=== PATIENT | female | born 1945 | race Caucasian/White ===

== ENCOUNTER 2024-04-16 14:48 | Inpatient (IN) | payer MEDICARE, OTHER ==
[~2024-04-16] VITALS: Ht 162.6 cm; Wt 62.1 kg
[2024-04-16 15:28] LABS: BASOPHILS # (AUTO) 0.1 K/uL (0.0-0.2); BASOPHILS % (AUTO) 0.8 % (0.0-2.0); EOSINOPHILS # (AUTO) 0.1 K/uL (0.0-0.7); EOSINOPHILS % (AUTO) 0.8 % (0.0-6.0); HEMATOCRIT 35 % (33-45); HEMOGLOBIN 11.5 g/dL (11.5-14.8); LYMPHOCYTES # (AUTO) 0.5 K/uL (0.8-4.8); LYMPHOCYTES % (AUTO) 4.8 % (20.0-44.0); MEAN CORPUSCULAR HEMOGLOBIN 29 PG (26.0-33.0); MEAN CORPUSCULAR HGB CONC 34 g/dl (31.0-36.0); MEAN CORPUSCULAR VOLUME 86 fL (82-100); MONOCYTES # (AUTO) 1.4 K/uL (0.1-1.30); MONOCYTES % (AUTO) 13.9 % (2.0-12.0); NEUTROPHILS % (AUTO) 79.7 % (43.0-81.0); PLATELET COUNT (AUTO) 184 K/uL (150-450); RED BLOOD CELL COUNT(AUTO) 4.01 MIL/uL (4.0-5.2); RED CELL DISTRIBUTION WIDTH 14.7 % (11.5-15.0)
[2024-04-16] MEDS: IV NS 0.9% 250 ML BAG IV ONE (15:40)
[2024-04-16 15:41] LABS: CALCIUM, SERUM 9.7 mg/dL (8.5-10.1); CARBON DIOXIDE 24 mmol/L (21-32); CHLORIDE 105 mmol/L (98-107); CREATININE 0.6 mg/dL (0.6-1.3); GLUCOSE 67 mg/dL (74-106); POTASSIUM 3.5 mmol/L (3.5-5.1); SODIUM SERUM 141 mmol/L (136-145); UREA NITROGEN, BLOOD 12 mg/dL (7-18)
[2024-04-16] MEDS ORDERED: ACETAMINOPHEN ES 500 MG TABLET ONE (15:48)
[2024-04-16] MEDS ORDERED: AMOX/CLAVULANATE 875 MG TABLET ONE (15:49)
[2024-04-16] MEDS ORDERED: AMOX/CLAVULANATE 875 MG TABLET PO ONE (16:00)
[2024-04-16] MEDS: ACETAMINOPHEN ES 500 MG TABLET PO ONE (16:05)
[2024-04-16] MEDS: AZITHROMYCIN 250 MG TABLET PO ONE (16:05)
[2024-04-16] MEDS: CEFEPIME 1 GM in IV D5W 50 ML IV ONE (16:15)
[2024-04-16] MEDS ORDERED: CYCL30DR EACHEYE (16:39)
[2024-04-16] MEDS ORDERED: HYDR25TA4 PO (16:39)
[2024-04-16] MEDS ORDERED: MOME13HF2 IH (16:39)
[2024-04-16] MEDS ORDERED: OMEG-167 PO (16:39)
[2024-04-16] MEDS ORDERED: ERYT3.5O9 EACHEYE (16:39)
[2024-04-16] MEDS ORDERED: DICL100G26 TP (16:39)
[2024-04-16] MEDS ORDERED: LIPA1CAP15 PO (16:39)
[2024-04-16] MEDS ORDERED: DEXL60CA3 PO (16:39)
[2024-04-16] MEDS ORDERED: ESCI20TA PO (16:39)
[2024-04-16] MEDS ORDERED: MAGN400T26 PO (16:39)
[2024-04-16] MEDS ORDERED: CETI10TA14 PO (16:39)
[2024-04-16] MEDS ORDERED: HYDR-4077 PO (16:39)
[2024-04-16] MEDS ORDERED: ISOS60TA72 PO (16:39)
[2024-04-16] MEDS ORDERED: DOXA8TAB79 PO (16:39)
[2024-04-16] MEDS ORDERED: AMLO2.5T2 PO (16:39)
[2024-04-16] MEDS ORDERED: ROSU20TA2 PO (16:39)
[2024-04-16] MEDS ORDERED: OLME40TA12 PO (16:39)
[2024-04-16] MEDS ORDERED: CHOL500052 PO (16:39)
[2024-04-16] MEDS ORDERED: HYDR28.316 RC (16:39)
[2024-04-16] MEDS ORDERED: APIX2.5T PO (16:39)
[2024-04-16] MEDS ORDERED: ACETAMINOPHEN 325 MG TABLET PO PRN (20:00)
[2024-04-16] MEDS ORDERED: ONDANSETRON HCL/PF 4 MG/2 ML VIAL IVP PRN (20:00)
[2024-04-16] MEDS ORDERED: Z GUARD REMEDY 4 OZ OINT TP PRN (20:00)
[2024-04-16] MEDS ORDERED: MAG HYDROX/AL HYDROX/SIMETH 30 ML UDC PO PRN (20:00)
[2024-04-16] MEDS ORDERED: MAGNESIUM HYDROXIDE 30 ML UDC PO PRN (20:00)
[2024-04-16] MEDS ORDERED: ZOLPIDEM TARTRATE 5 MG TABLET PO PRN (20:00)
[2024-04-16] MEDS ORDERED: NITROGLYCERIN 0.4 MG/TAB BOTTLE SL PRN (20:00)
[2024-04-16] MEDS ORDERED: ALBUTEROL FS 2.5 MG/3 ML VIAL.NEB NEB PRN (20:00)
[2024-04-16 20:30] VITALS: BP 143/76; TEMP 98.4; O2SAT 94
[2024-04-16] MEDS ORDERED: MAGNESIUM OXIDE 400 MG TABLET PO PRN (20:30)
[2024-04-16] MEDS ORDERED: DICLOFENAC TOPICAL 100 GM TUBE TP PRN (21:30)
[2024-04-16] MEDS: cetrizine 10 MG TABLET PO SCH (21:47)
[2024-04-17] VITALS (10 sets, daily range): BP systolic 97–168; BP diastolic 56–83; TEMP 97.7–98.8; O2SAT 91–99
[2024-04-17] MEDS ORDERED: CEFEPIME 1 GM in IV D5W 50 ML IV ONE (01:00)
[2024-04-17] MEDS ORDERED: CEFEPIME 1 GM VIAL ONE (04:16)
[2024-04-17] MEDS: CEFEPIME 1 GM in IV D5W 50 ML IV ONE (04:27)
[2024-04-17 06:56] LABS: BASOPHILS % (AUTO) 0.2 % (0.0-2.0); EOSINOPHILS # (AUTO) 0.1 K/uL (0.0-0.7); EOSINOPHILS % (AUTO) 1.1 % (0.0-6.0); HEMATOCRIT 32 % (33-45); HEMOGLOBIN 10.9 g/dL (11.5-14.8); LYMPHOCYTES # (AUTO) 0.7 K/uL (0.8-4.8); LYMPHOCYTES % (AUTO) 6.2 % (20.0-44.0); MEAN CORPUSCULAR HEMOGLOBIN 29 PG (26.0-33.0); MEAN CORPUSCULAR HGB CONC 34 g/dl (31.0-36.0); MEAN CORPUSCULAR VOLUME 85 fL (82-100); MONOCYTES # (AUTO) 1.2 K/uL (0.1-1.30); MONOCYTES % (AUTO) 11.1 % (2.0-12.0); NEUTROPHILS # (AUTO) 9.1 K/uL (1.8-8.9); NEUTROPHILS % (AUTO) 81.4 % (43.0-81.0); PLATELET COUNT (AUTO) 194 K/uL (150-450); RED BLOOD CELL COUNT(AUTO) 3.73 MIL/uL (4.0-5.2); RED CELL DISTRIBUTION WIDTH 14.5 % (11.5-15.0); WHITE BLOOD COUNT (AUTO) 11.2 K/uL (4.3-11.0)
[2024-04-17 07:06] LABS: CALCIUM, SERUM 9.1 mg/dL (8.5-10.1); CARBON DIOXIDE 23 mmol/L (21-32); CHLORIDE 105 mmol/L (98-107); CREATININE 0.7 mg/dL (0.6-1.3); GLUCOSE 76 mg/dL (74-106); MAGNESIUM 1.9 mg/dL (1.8-2.4); PHOSPHORUS 3.1 mg/dL (2.5-4.9); POTASSIUM 3.5 mmol/L (3.5-5.1); SODIUM SERUM 140 mmol/L (136-145); UREA NITROGEN, BLOOD 16 mg/dL (7-18)
[2024-04-17] MEDS ORDERED: PANTOPRAZOLE 40 MG TABLET.DR PO SCH (07:30)
[2024-04-17] MEDS ORDERED: ERGOCALCIFEROL (VITAMIN D 2) 50,000 UNIT CAPSULE PO SCH (09:00)
[2024-04-17] MEDS ORDERED: Medication Not On Formulary EA (Cyclosporine (Restasis) 1 DROP) EACHEYE SCH (09:00)
[2024-04-17] MEDS ORDERED: Medication Not On Formulary EA (Omega-3 Fatty Acids/Fish Oil (Fish Oil 1,000 Mg Softgel) PO SCH (09:00)
[2024-04-17] MEDS ORDERED: AMOX/CLAVULANATE 875 MG TABLET PO SCH (09:00)
[2024-04-17] MEDS: ESCITALOPRAM OXALATE (10 MG) 10 MG TABLET PO SCH (09:36)
[2024-04-17] MEDS: PANTOPRAZOLE 40 MG TABLET.DR PO SCH (09:36)
[2024-04-17] MEDS: FUROSEMIDE 20 MG/2 ML VIAL IV SCH (09:37)
[2024-04-17] MEDS: APIXABAN 2.5 MG TABLET PO SCH (09:37)
[2024-04-17] MEDS: ATORVASTATIN 40 MG TABLET PO SCH (09:37)
[2024-04-17] MEDS: LOSARTAN POTASSIUM 50 MG TABLET PO SCH (09:38)
[2024-04-17] MEDS: AMLODIPINE BESYLATE 2.5 MG TABLET PO SCH (09:38)
[2024-04-17] MEDS: HYDROCHLOROTHIAZIDE 25 MG TABLET PO SCH (09:39)
[2024-04-17] MEDS: ISOSORBIDE MONONITRATE (30MG) 30 MG TAB.SR.24H PO SCH (09:39)
[2024-04-17] MEDS: hydrALAZINE HCL 50 MG TABLET PO SCH (09:42)
[2024-04-17] MEDS: CEFEPIME 2 GM in IV D5W 100 ML IV SCH (13:33)
[2024-04-17] MEDS: BUDESONIDE RESPULE INH 0.5 MG/2 ML AMPUL.NEB IH SCH (16:06)
[2024-04-17] MEDS: ALBUTEROL FS 2.5 MG/3 ML VIAL.NEB NEB SCH ×2 (16:06→20:27)
[2024-04-17] MEDS: DOXAZOSIN MESYLATE (4 MG) 4 MG TABLET PO SCH (17:29)
[2024-04-17] MEDS ORDERED: ALBUTEROL FS 2.5 MG/3 ML VIAL.NEB NEB PRN (19:26)
[2024-04-18] VITALS (16 sets, daily range): BP systolic 90–161; BP diastolic 47–73; TEMP 97.5–98.6; O2SAT 91–99
[2024-04-18 06:39] LABS: BASOPHILS % (AUTO) 0.3 % (0.0-2.0); EOSINOPHILS # (AUTO) 0.1 K/uL (0.0-0.7); EOSINOPHILS % (AUTO) 1.2 % (0.0-6.0); HEMATOCRIT 31 % (33-45); HEMOGLOBIN 10.8 g/dL (11.5-14.8); LYMPHOCYTES # (AUTO) 0.8 K/uL (0.8-4.8); LYMPHOCYTES % (AUTO) 8.5 % (20.0-44.0); MEAN CORPUSCULAR HEMOGLOBIN 30 PG (26.0-33.0); MEAN CORPUSCULAR HGB CONC 35 g/dl (31.0-36.0); MEAN CORPUSCULAR VOLUME 84 fL (82-100); MONOCYTES # (AUTO) 0.9 K/uL (0.1-1.30); MONOCYTES % (AUTO) 9.3 % (2.0-12.0); NEUTROPHILS # (AUTO) 7.7 K/uL (1.8-8.9); NEUTROPHILS % (AUTO) 80.7 % (43.0-81.0); PLATELET COUNT (AUTO) 211 K/uL (150-450); RED BLOOD CELL COUNT(AUTO) 3.65 MIL/uL (4.0-5.2); RED CELL DISTRIBUTION WIDTH 14.6 % (11.5-15.0); WHITE BLOOD COUNT (AUTO) 9.6 K/uL (4.3-11.0)
[2024-04-18] MEDS: BUDESONIDE RESPULE INH 0.5 MG/2 ML AMPUL.NEB IH SCH (07:52)
[2024-04-18 08:20] LABS: CREATININE 0.9 mg/dL (0.6-1.3); PHOSPHORUS 2.7 mg/dL (2.5-4.9); POTASSIUM 2.9 mmol/L (3.5-5.1)
[2024-04-18] MEDS: POTASSIUM CHLORIDE 20 MEQ TAB.PRT.SR PO SCH (10:04)
[2024-04-18] MEDS ORDERED: LIPASE/PROTEASE/AMYLASE 1 EACH CAPSULE.DR PO SCH (10:23)
[2024-04-18] MEDS: VALSARTAN 80 MG TABLET PO SCH (13:30)
[2024-04-18] MEDS: DILTIAZEM HCL CD 240 MG PO SCH (13:30)
[2024-04-19] VITALS (13 sets, daily range): BP systolic 120–140; BP diastolic 68–77; TEMP 97.9–98.6; O2SAT 91–98
[2024-04-19 08:15] LABS: CALCIUM, SERUM 9.9 mg/dL (8.5-10.1); CREATININE 0.9 mg/dL (0.6-1.3); POTASSIUM 3.4 mmol/L (3.5-5.1)
[2024-04-19] MEDS: LIPASE/PROTEASE/AMYLASE 1 EACH CAPSULE.DR PO SCH (08:52)
[2024-04-19] MEDS: POTASSIUM CHLORIDE 20 MEQ TAB.PRT.SR PO SCH (10:01)
[2024-04-20] VITALS (10 sets, daily range): BP systolic 108–142; BP diastolic 48–77; TEMP 98.2–99.5; O2SAT 91–97
[2024-04-21] VITALS (8 sets, daily range): BP systolic 139; BP diastolic 59; TEMP 98.2; O2SAT 91–99
[2024-04-21] MEDS ORDERED: CEFD300C3 PO (12:00)
[2024-04-21] MEDS ORDERED: GUAI100L26 PO (12:44)
== END 2024-04-21 14:52 | disposition home or self-care (01) | DRG 193 ==
LOC: ER 14:53 → TELE 18:05 → MED 04-19 11:44
PROVIDERS: ADMIT Nurse Practitioner Family; ATTEND Nurse Practitioner Acute Care
DX: J15.9 Unspecified bacterial pneumonia (principal); I50.33 Acute on chronic diastolic (congestive) heart failure; E44.1 Mild protein-calorie malnutrition; J98.11 Atelectasis; I11.0 Hypertensive heart disease with heart failure; I48.91 Unspecified atrial fibrillation; Z20.822 Contact with and (suspected) exposure to COVID-19; E78.5 Hyperlipidemia, unspecified; K21.9 Gastro-esophageal reflux disease without esophagitis; Z79.01 Long term (current) use of anticoagulants; Z79.51 Long term (current) use of inhaled steroids; Z79.899 Other long term (current) drug therapy; M19.90 Unspecified osteoarthritis, unspecified site; E88.09 Other disorders of plasma-protein metabolism, not elsewhere classified; I27.20 Pulmonary hypertension, unspecified; K86.81 Exocrine pancreatic insufficiency; E87.6 Hypokalemia; E16.2 Hypoglycemia, unspecified
CPT/HCPCS: 36415; 71045-TC; 71250-TC; 80048-TC; 82040-TC; 83605-TC; 83735-TC; 83880; 84100-TC; 84484-TC; 85025-TC; 87040-TC; 93307-TC; 93970-TC; 94760-TC; 94762-TC; 94799-TC; 97110-TC; 97116-TC; 97530-TC; A4223; G0378; J0692; J1940; J7040; J7050; J7060